=== PATIENT | male | born 1950 | race Caucasian/White ===

== ENCOUNTER 2017-01-28 03:01 | Observation (INO) ==
[2017-01-28 03:50] LABS: Basophils % 0.5 %; Eosinophils # 0.2 K/mcL (0.0-0.6); Eosinophils % 3.7 %; Hematocrit 43.7 % (37.5-50.1); Immature Granulocytes % 0.2 % (0-4); Lymphocytes % 32.5 %; Mean Corpuscular HGB Conc 34.3 g/dL (31.6-35.5); Mean Corpuscular Hemoglobin 30.2 pg (28.0-33.3); Mean Corpuscular Volume 88.1 fL (83.0-100.0); Mean Platelet Volume 12.1 fL (9.4-12.4); Monocytes # 0.5 K/mcL (0.0-1.3); Monocytes % 8.5 %; Neutrophils # 3.4 K/mcL (1.6-8.9); Platelet Count 103 K/mcL (140-400); Red Blood Count 4.96 M/mcL (4.19-5.50); Red Cell Distribution Width 12.4 % (11.5-14.5); Segmented Neutrophils % 54.6 %
[2017-01-28 03:55] LABS: Bilirubin,Urine Negative (Negative); Blood,Urine Negative (Negative); Clarity,Urine Cloudy (Clear); Color,Urine Yellow (Yellow); Glucose,Urine (UA) Normal (Normal); Ketones,Urine Trace mg/dL (Negative); Leukocyte Esterase,Urine Negative (Negative); Nitrite,Urine Negative (Negative); PH,Urine 5.5 pH Units (5.0-8.0); Protein,Urine Negative (Neg-Trace); Specific Gravity,Urine 1.022 (1.010-1.025); Urobilinogen,Urine Normal (Normal)
[2017-01-28 03:57] LABS: RBC,Urine 0-3 per hpf (0-3); Squamous Epithelial Cell,Urine Many per lpf (None-Few); WBC,Urine 0-3 per hpf (0-3)
[2017-01-28 04:04] LABS: Alanine Aminotransferase 15 Units/L (0-55); Albumin 3.4 g/dL (3.5-5.0); Albumin/Globulin Ratio 0.9 (1.1-2.2); Alkaline Phosphatase 62 Units/L (38-126); Aspartate Amino Transferase 21 Units/L (5-34); BUN/Creatinine Ratio 14 (6-26); Bilirubin,Direct 0.5 mg/dL (0.0-0.5); Bilirubin,Indirect 0.9 mg/dL (0.0-1.2); Bilirubin,Total 1.4 mg/dL (0.2-1.2); Blood Urea Nitrogen 19 mg/dL (8-26); Calcium 10.1 mg/dL (8.6-10.8); Carbon Dioxide 29 mEq/L (19-29); Chloride 101 mEq/L (98-109); Globulin 3.8 g/dL (2.4-3.5); Glucose 135 mg/dL (70-99); Lipase 19 Units/L (8-78); Osmolality,Calculated 294 (280-300); Potassium 3.6 mEq/L (3.5-4.5); Sodium 140 mEq/L (136-145); Total Protein 7.2 g/dL (6.0-8.3); eGFR For African Americans > 60 (> 60); eGFR For Non-African Americans 54 (> 60)
[2017-01-28 04:16] LABS: Bacteria,Urine Few per hpf (None-Few); Calcium Oxalate Crystals,Urine Present; Hyaline Casts,Urine Few per lpf (None-Few); Mucus,Urine Few (Few)
--- NOTE | 2017-01-28 07:23 | Emergency Department Note ---
Disposition Clinical Impression: Abdominal pain Qualifiers: Abdominal location: unspecified location Qualified Code(s): R10.9 - Unspecified abdominal pain Disposition: Admitted As Inpatient Condition: Good Referrals: NONE,PCP [Primary Care Provider] - Forms: Work/School Release, ED Satisfaction Letter Time of Disposition: 09:50 Abdominal Pain HPI - General Chief Complaint: ED Abdominal Pain Stated Complaint: abd pain Time Seen by Provider: 01/28/17 07:19 Source: patient Mode of arrival: ambulatory Limitations: no limitations Nursing Notes Reviewed: Yes Vital Signs Reviewed: Yes - History of Present Illness HPI Narrative: 66-year-old has had burning pain across his upper abdomen for the last several weeks. Saw his family doctor she felt it was a hernia because when he sits up he has some bulging in the epigastrium. He states this burning comes on after he eats. Currently has no symptoms. Pt Subjective Complaint: abdominal pain Onset (ago): week(s) Consistency: intermittent Location: LUQ, RUQ, epigastric Pain Scale: 4 Quality: burning Radiation: none Migration to: no migration Improves with: nothing Worsens with: eating Associated symptoms: Reports: nausea Treatments prior to arrival: none - Related Data Home Medications Medication Instructions Recorded Confirmed Losartan/HCTZ [Hyzaar 50-12.5 1 each PO DAILY 11/19/15 11/17/16 Tablet] Terazosin [Hytrin] 5 mg PO HS 11/19/15 11/17/16 GlipiZIDE [Glipizide Xl] 5 mg PO DAILY 11/17/16 11/17/16 Metoprolol [Lopressor] 50 mg PO BID 11/17/16 11/17/16 Allergies Allergy/AdvReac Type Severity Reaction Status Date / Time lisinopril AdvReac Cough Verified 11/17/16 08:52 All systems ED: reviewed and negative except as stated. Constitutional: Denies: fever, chills, weakness, weight change Eyes: Denies: eye pain, eye discharge, vision change ENT ED: Denies: ear pain, throat pain, dental pain, hearing loss, epistaxis, congestion, dysphagia Cardiovascular: Denies: chest pain, palpitations, dyspnea on exertion, edema, syncope Respiratory: Denies: cough, dyspnea, wheezes, hemoptysis, stridor Gastrointestinal: Reports: abdominal pain. Denies: nausea, vomiting, diarrhea, constipation, hematemesis, melena, hematochezia Genitourinary: Denies: urgency, dysuria, frequency, hematuria Musculoskeletal: Denies: back pain, neck pain, arthralgia, myalgia Integumentary: Denies: rash, abrasion, lesions Neurological: Denies: headache, weakness, numbness, paresthesias, confusion, abnormal gait, vertigo Psychiatric: Denies: anxiety, depression, suicidal thoughts, homicidal thoughts , auditory hallucinations, visual hallucinations Endocrine: Denies: fatigue Hematological/Lymphatic: Denies: easy bleeding, easy bruising Allergic/Immunologic: Denies: facial swelling, urticaria Abdominal Pain PMH - Past Medical History Medical history: Reports: diabetes, hypertension Male Surgical History: Reports: no surgical history Psychiatric history: Reports: no psych history - Social History Smoking status: Never smoker Alcohol use: Reports: none Drug use: Reports: none Physical Exam - General Limitations: no limitations General appearance: alert, in no apparent distress - Head Head exam: atraumatic, normocephalic, normal inspection - Eye Eye exam: Present: normal appearance, PERRL, EOMI - ENT ENT exam: normal exam, normal oropharynx, mucous membranes moist - Neck Neck exam: Present: normal inspection, full ROM, trachea midline - Chest Chest inspection: Present: normal inspection, symmetric chest wall rise - Respiratory Respiratory exam: Present: normal lung sounds bilaterally - Cardiovascular Cardiovascular exam: Present: regular rate - Abdominal Exam Abdominal exam: Present: soft, Non-Tender. Absent: tenderness, distention, guarding, rebound, rigidity - Extremities Exam Extremities exam: Present: normal inspection, full ROM. Absent: tenderness, pedal edema - Expanded Lower Extremity Exam Neurovascular/Tendon exam: Absent: motor deficit, sensory deficit, tendon deficit Gait: observed and normal - Back Exam Back exam: Present: normal inspection, full ROM. Absent: tenderness - Neurological Exam Neurological exam: Present: alert, oriented X3 - Psychiatric Psychiatric exam: Present: normal affect, normal mood - Skin Skin exam: Present: warm, dry, intact, normal color Course - Consultations Consultation #1: Discussed with who indicates the patient should be admitted to hospitalist in this further evaluated. Time: 09:29 Consultation #2: Discussed with Dr. Iniguez, will consult. Time: 09:48 Consultation #3: Discussed with Gildardo Orozco, admit. Time: 09:49 Vital Signs Temperature 97.8 F 01/28/17 03:02 Pulse Rate 68 01/28/17 03:02 Respiratory Rate 18 01/28/17 03:02 Blood Pressure 138/89 01/28/17 03:02 O2 Sat by Pulse Oximetry 97 01/28/17 03:02 Temperature 97.8 F 01/28/17 03:02 Pulse Rate 68 01/28/17 07:58 Respiratory Rate 16 01/28/17 07:58 Blood Pressure 138/98 01/28/17 07:58 O2 Sat by Pulse Oximetry 97 01/28/17 07:58 Oxygen Delivery Oxygen Delivery Room Air Abdominal Pain - Lab Data Lab results reviewed: Yes I reviewed the patient's lab results. Result diagrams: 01/28/17 03:42 01/28/17 03:42 Lab Results 01/28/17 01/28/17 01/28/17 Range/Units 03:42 03:42 03:47 WBC 6.2 (4.3-11.1) K/mcL RBC 4.96 (4.19-5.50) M/mcL Hgb 15.0 (12.9-16.9) g/dL Hct 43.7 (37.5-50.1) % MCV 88.1 (83.0-100.0) fL MCH 30.2 (28.0-33.3) pg MCHC 34.3 (31.6-35.5) g/dL RDW 12.4 (11.5-14.5) % Plt Count 103 L (140-400) K/mcL MPV 12.1 (9.4-12.4) fL Immature Gran % 0.2 (0-4) % Seg Neutrophils % 54.6 % Lymphocytes % 32.5 % Monocytes % 8.5 % Eosinophils % 3.7 % Basophils % 0.5 % Neutrophils # 3.4 (1.6-8.9) K/mcL Lymphocytes # 2.0 (0.6-4.6) K/mcL Monocytes # 0.5 (0.0-1.3) K/mcL Eosinophils # 0.2 (0.0-0.6) K/mcL Basophils # 0.0 (0.0-0.2) K/mcL Sodium 140 (136-145) mEq/L Potassium 3.6 (3.5-4.5) mEq/L Chloride 101 (98-109) mEq/L Carbon Dioxide 29 (19-29) mEq/L BUN 19 (8-26) mg/dL Creatinine 1.32 H (0.72-1.25) mg/dL Est GFR ( Amer) > 60 (> 60) Est GFR (Non-Af Amer) 54 L (> 60) BUN/Creatinine Ratio 14 (6-26) Glucose 135 H (70-99) mg/dL Calculated Osmolality 294 (280-300) Calcium 10.1 (8.6-10.8) mg/dL Total Bilirubin 1.4 H (0.2-1.2) mg/dL Direct Bilirubin 0.5 (0.0-0.5) mg/dL Indirect Bilirubin 0.9 (0.0-1.2) mg/dL AST 21 (5-34) Units/L ALT 15 (0-55) Units/L Alkaline Phosphatase 62 (38-126) Units/L Troponin I (0-0.03) ng/mL Serum Total Protein 7.2 (6.0-8.3) g/dL Albumin 3.4 L (3.5-5.0) g/dL Globulin 3.8 H (2.4-3.5) g/dL Albumin/Globulin Ratio 0.9 L (1.1-2.2) Amylase (25-125) Units/L Lipase 19 (8-78) Units/L Urine Color Yellow (Yellow) Urine Clarity Cloudy A (Clear) Urine pH 5.5 (5.0-8.0) pH Units Ur Specific [place] 1.022 (1.010-1.025) Urine Protein Negative (Neg-Trace) mg/dL Urine Glucose (UA) Normal (Normal) mg/dL Urine Ketones Trace H (Negative) mg/dL Urine Blood Negative (Negative) Urine Nitrite Negative (Negative) Urine Bilirubin Negative (Negative) Urine Urobilinogen Normal (Normal) mg/dL Ur Leukocyte Esterase Negative (Negative) Urine Microscopic RBC 0-3 (0-3) per hpf Urine Microscopic WBC 0-3 (0-3) per hpf Ur Squamous Epith Cells Many H (None-Few) per lpf Calcium Oxalate Crystal Present Urine Bacteria Few (None-Few) per hpf Hyaline Casts Few (None-Few) per lpf Urine Mucus Few (Few) Ur Culture Indicated? NO (NO) 01/28/17 01/28/17 Range/Units 07:32 07:32 WBC (4.3-11.1) K/mcL RBC (4.19-5.50) M/mcL Hgb (12.9-16.9) g/dL Hct (37.5-50.1) % MCV (83.0-100.0) fL MCH (28.0-33.3) pg MCHC (31.6-35.5) g/dL RDW (11.5-14.5) % Plt Count (140-400) K/mcL MPV (9.4-12.4) fL Immature Gran % (0-4) % Seg Neutrophils % % Lymphocytes % % Monocytes % % Eosinophils % % Basophils % % Neutrophils # (1.6-8.9) K/mcL Lymphocytes # (0.6-4.6) K/mcL Monocytes # (0.0-1.3) K/mcL Eosinophils # (0.0-0.6) K/mcL Basophils # (0.0-0.2) K/mcL Sodium (136-145) mEq/L Potassium (3.5-4.5) mEq/L Chloride (98-109) mEq/L Carbon Dioxide (19-29) mEq/L BUN (8-26) mg/dL Creatinine (0.72-1.25) mg/dL Est GFR ( Amer) (> 60) Est GFR (Non-Af Amer) (> 60) BUN/Creatinine Ratio (6-26) Glucose (70-99) mg/dL Calculated Osmolality (280-300) Calcium (8.6-10.8) mg/dL Total Bilirubin (0.2-1.2) mg/dL Direct Bilirubin (0.0-0.5) mg/dL Indirect Bilirubin (0.0-1.2) mg/dL AST (5-34) Units/L ALT (0-55) Units/L Alkaline Phosphatase (38-126) Units/L Troponin I 0.00 (0-0.03) ng/mL Serum Total Protein (6.0-8.3) g/dL Albumin (3.5-5.0) g/dL Globulin (2.4-3.5) g/dL Albumin/Globulin Ratio (1.1-2.2) Amylase 36 (25-125) Units/L Lipase (8-78) Units/L Urine Color (Yellow) Urine Clarity (Clear) Urine pH (5.0-8.0) pH Units Ur Specific [place] (1.010-1.025) Urine Protein (Neg-Trace) mg/dL Urine Glucose (UA) (Normal) mg/dL Urine Ketones (Negative) mg/dL Urine Blood (Negative) Urine Nitrite (Negative) Urine Bilirubin (Negative) Urine Urobilinogen (Normal) mg/dL Ur Leukocyte Esterase (Negative) Urine Microscopic RBC (0-3) per hpf Urine Microscopic WBC (0-3) per hpf Ur Squamous Epith Cells (None-Few) per lpf Calcium Oxalate Crystal Urine Bacteria (None-Few) per hpf Hyaline Casts (None-Few) per lpf Urine Mucus (Few) Ur Culture Indicated? (NO) - Radiology Data Radiology results reviewed: Yes I reviewed the patient's radiology results. Abdomen/Pelvis CT 01/28/17 07:19 IMPRESSION: 1. Mild inflammation within the central mesenteric root. The differential diagnosis includes mesenteric edema, inflammation from enteritis versus less likely mesenteric adenitis or pancreatitis. D/ / 01/28/2017 08:04:46 Samuel Henriquez MD / gissel Interpreting Provider: Samuel Henriquez MD - EKG Data EKG attestation: Yes I reviewed and interpreted this EKG. EKG shows normal: sinus rhythm Rate: normal Rhythm: NSR T wave inversions noted in: II, III, aVF When compared to previous EKG there are: no significant changes (06/03/1998) Interpretation: no acute changes
[2017-01-28] MEDS ORDERED: Pantoprazole 40 MG VIAL IVP ONE (09:47)
[2017-01-28] MEDS ORDERED: Piperacillin/Tazobactam 3.375 GM in D5% in Water (Mini-Bag+) 100 ML IVPB ONE (09:47)
--- NOTE | 2017-01-28 13:00 | Internal Med History&Physical ---
<Ella Graham - Last Filed: 01/28/17 13:42> Date of Encounter: 01/28/17 Time of Encounter: 12:30 Assessment and Plan (1) Abdominal pain Current visit: Yes Status: Acute Pt reports 1 1/2 week history of upper abdominal burning that is constant, but fluctuates in intensity. Rates 8/10 without radiation. He denies hematemesis, hematochezia, melena, n/v/d. He reports increased belching. Recently started ASA and Metformin and has stopped taking Metformin to see if pain stopped. He reports similar pain with ASA in the past. Epigastric area tender to palpation. ED physician has consulted surgery and GI. CT shows enteritis vx mesenteric adenitis vs pancreatitis. Abdomen/Pelvis CT 01/28/17 07:19 IMPRESSION: 1. Mild inflammation within the central mesenteric root. The differential diagnosis includes mesenteric edema, inflammation from enteritis versus less likely mesenteric adenitis or pancreatitis. D/ / 01/28/2017 08:04:46 Samuel Henriquez MD / gissel Interpreting Provider: Samuel Henriquez MD Stop ASA Protonix 40mg IV GI consult for possible EGD Surgical consult Continue IV antibiotics. Qualifiers: Abdominal location: upper abdomen, unspecified Qualified Code(s): R10.10 - Upper abdominal pain, unspecified (2) HTN (hypertension) Current visit: Yes Status: Acute Chronic. Continue home medications. Qualifiers: Hypertension type: essential hypertension Qualified Code(s): I10 - Essential (primary) hypertension (3) Palpitations Current visit: Yes Status: Acute History. Pt states that he was placed on BB by PCP for palpitations years ago. Denies recently. Continue home medications. (4) Irritable bowel Current visit: Yes Status: Acute Prior history. Pt states that he used to take Reglan. Denies recent difficulties. Qualifiers: Irritable bowel syndrome type: with both diarrhea and constipation Qualified Code(s): K58.2 - Mixed irritable bowel syndrome (5) Type 2 diabetes mellitus Current visit: No Status: Acute Recent diagnosis in November. Pt has been taking Metformin until a few days ago when he stopped to see if it was the cause of his abdominal pain. Accuchecks ac/hs Diabetic diet Sliding scale insulin. Qualifiers: Diabetes mellitus complication status: without complication Diabetes mellitus fdc insulin use: without intermodal truck driver use Qualified Code(s): E11.9 - Type 2 diabetes mellitus without complications (6) MGUS (monoclonal gammopathy of unknown significance) Current visit: No Status: Chronic Stable. Pt follows with [facility]. (7) DVT prophylaxis Current visit: Yes Status: Acute Heparin SQ. Pt is ambulatory and observation status. Internal Medicine - H&P: HPI Admitted From: Home Plans for Post Hospital Care: Home History of present illness: Mr. Stein is a 66 year old male with a past medical history of DMII, HTN, palpitations controlled with BB, IBS, and MGUS. He presented to the ED during the night with c/o 1 1/2 week history of upper abdominal pain. He was seen at PCP and was diagnosed with a hernia and referred to surgery, Dr. Zuniga. He reports pain 8/10 that is constant, but the intensity fluctuates. Last colonoscopy was 10 years ago and he is due for another, but has not scheduled it yet. The pain may be made worse by eating, as his abdomen becomes more bloated and distended with eating. The pain is relieved by nothing. HE denies radiation of the pain, n/v/d. Pt states that he was recently started on ASA and Metformin 500mg po daily on December 05. He reports prior GI distress with ASA and had to stop taking it. States that the pain is similar. Pt has had an intentional 20lb weight loss in relation to his new diagnosis of DM and states that he has some anorexia due to pain. Past Med Surg Social Fam HX - Past Medical History Medical history: diabetes, hypertension Psychiatric history: no psych history - Past Surgical History Surgical History: no surgical history - Social History Smoking Status: Never smoker Smokeless Tobacco Status: No Alcohol use: none Drug use: none - Family History Mother Hx Family Endocrine Disorder: Yes (DM) Grandmother Hx Family Endocrine Disorder: Yes (DM) Father Hx Family Cardiac Disorders: Yes (A-Fib) Internal Medicine - H&P: Meds Terazosin [Hytrin] 5 mg PO HS 11/19/15 [History] GlipiZIDE [Glipizide Xl] 2.5 mg PO DAILY 11/17/16 [History] Metoprolol [Lopressor] 50 mg PO BID 11/17/16 [History] Aspirin [Lo-Dose Aspirin EC] 81 mg PO DAILY 01/28/17 [History] Losartan/Hydrochlorothiazide [Hyzaar 100-12.5 Tablet] 1 tab PO QAM 01/28/17 [ History] metFORMIN [Glucophage] 500 mg PO HS 01/28/17 [History] Allergies lisinopril Adverse Reaction (Verified 11/17/16 08:52) Cough All Systems PM: A 10-system review of systems was performed and is negative for pertinent findings except as documented above in the HPI. - Constitutional Constitutional: anorexia, no chills, no fatigue, no falls, no lethargy, no weakness, no weight gain - EENT Eyes: no change in vision, no other visual disturbances - Cardiovascular Cardiovascular ROS IM: no chest pain, no diaphoresis, no dyspnea, no edema, no irregular heart rhythm, no lightheadedness, no palpitations - Respiratory Respiratory: no cough, no dyspnea on exertion, no stridor, no chest congestion - Gastrointestinal Gastrointestinal: belching, bloating, dyspepsia, no change in bowel habits, no coffee ground emesis, no constipation, no diarrhea, no melena, no nausea, no vomiting - Genitourinary Genitourinary ROS male: no difficulty urinating, no hematuria, no urinary frequency, no urinary urgency - Musculoskeletal Musculoskeletal ROS IM: no back pain, no myalgias, no numbness, no tingling - Neurological Neurological ROS: no confusion, no dizziness, no memory loss, no weakness - Endocrine Endocrine IM: no polydipsia, no polyphagia, no polyuria - Constitutional Vitals: Temp Pulse Resp BP Pulse Ox 98.0 F 55 18 134/89 98 01/28/17 11:32 01/28/17 11:32 01/28/17 11:32 01/28/17 11:32 01/28/17 11:32 General appearance: Present: cooperative, A&O X 3, pleasant, no acute distress, answers questions appropriately - Head Head exam: Present: normal inspection - Eye Eye exam: Present: normal appearance, conjuntiva pink - ENT ENT exam: Present: mucous membranes moist, normal exam, normal external ear exam - Neck Neck exam general surgery: Absent: lymphadenopathy, tenderness - Respiratory Respiratory exam: Present: CTAB. Absent: rales, rhonchi, stridor, wheezes - Cardiovascular Cardiovascular exam: Present: RRR, +S1. Absent: diastolic murmur, systolic murmur - GI/Abdominal GI/Abdominal exam: Present: distended, firm, normal bowel sounds. Absent: hepatomegaly, tenderness - Extremities Exam Extremities exam: Present: normal inspection, warm, radial pulses palpable and symetrical. Absent: pedal edema, tenderness - Neurological Exam Neurological exam: Present: alert, oriented X3, strengths equal and symetr throughout. Absent: facial droop, speech deficit - Skin Skin exam: Present: dry, intact, warm. Absent: rash, urticaria Internal Med - H&P Results - Labs CBC & Chem 7: 01/28/17 03:42 01/28/17 03:42 <Edison Baker - Last Filed: 01/28/17 18:51> Date of Encounter: 01/28/17 Internal Medicine - H&P: HPI History of present illness: Mr. Stein is a 66 year old male All Systems PM: A 10-system review of systems was performed and is negative for pertinent findings except as documented above in the HPI. - Constitutional Vitals: Temp Pulse Resp BP Pulse Ox 97.7 F 64 16 124/81 94 01/28/17 15:06 01/28/17 15:06 01/28/17 15:06 01/28/17 15:06 01/28/17 15:06 Internal Med - H&P Results - Labs CBC & Chem 7: 01/28/17 03:42 01/28/17 03:42 - Attending Attestation I have personally performed a face to face evaluation on this patient. I have reviewed and agree with the care plan. History and Exam by me shows: 66 y/o male with history of DM presents with abdominal pain. Pain is located in epigastric region and occurs after eating. No fever or chills. Started metformin and ASA in last few months. Exam Alert. Pleasant Mucus membranes moist Heart reg No wheeze Abd soft - mild discomfort epigastric area without peritoneal signs. I/p 1. Abd pain NPO after midnight GI consult 2. DM Further diagnoses and plan as above.
[2017-01-28] MEDS ORDERED: Ondansetron ODT 4 MG TAB.RAPDIS SL PRN (13:19)
[2017-01-28] MEDS ORDERED: Mag Hydrox/Al Hydrox/Simeth 30 ML UDC PO PRN (13:19)
[2017-01-28] MEDS ORDERED: Naloxone 0.4 MG/ML INJ IVP PRN (13:19)
[2017-01-28] MEDS ORDERED: MOM Conc 10 ML UD.LIQ PO PRN (13:19)
[2017-01-28] MEDS ORDERED: *HR* HYDROcodone/Acet 5/325 mg TABLET PO PRN (13:19)
[2017-01-28] MEDS ORDERED: Acetaminophen 325 MG TABLET PO PRN (13:19)
[2017-01-28] MEDS ORDERED: *HR* Dextrose 50 % in Water (Syg) 50 ML SYRINGE IVP PRN (13:21)
[2017-01-28] MEDS ORDERED: Dextrose Gel 15 GM PO PRN ×2 (13:21)
[2017-01-28] MEDS ORDERED: D5% in Water 1,000 ML IVC PRN (13:21)
[2017-01-28] MEDS: Insulin LISPRO 300 UNITS/3 ML VIAL SQ SCH ×2 (14:27→18:03)
[2017-01-28] MEDS ORDERED: Insulin LISPRO 300 UNITS/3 ML VIAL SQ SCH (21:00)
--- NOTE | 2017-01-28 22:35 | Internal Medicine Consult Note ---
Date of Encounter: 01/28/17 Time of Encounter: 22:33 - Assessment and Plan (1) Abdominal pain Current Visit: Yes Status: Acute Assessment and plan: CAT scan shows mesenteric adenitis, this is somewhat consistent with his story as well. Less likely etiologies to include upper abdominal strain, or ulcer disease. I think biliary disease is less likely. To be thorough, recommended upper endoscopy which we'll do in the morning. Risks and benefits have been discussed, he has signed consent. Qualifiers: Abdominal location: upper abdomen, unspecified Qualified Code(s): R10.10 - Upper abdominal pain, unspecified (2) HTN (hypertension) Current Visit: Yes Status: Acute Qualifiers: Hypertension type: essential hypertension Qualified Code(s): I10 - Essential (primary) hypertension Internal Medicine - CN: HPI - Data of Consult Consult date: 01/28/17 Requesting Physician: Ella Graham CNP - Consult Narrative Reason for consult: Abdominal pain History of present illness: Mr. Stein is a 66 year old male presented to the ER today, with upper abdominal discomfort. This is been ongoing for at least the last 6 days, somewhat persistent and goal, at times crampy. He's had no nausea no vomiting no change in his bowels. No previous bouts like this. He has been losing some weight but has been trying. He saw his primary care provider, and was told to come to the ER his pain worsened which it did. He also admits in the last 2 weeks, with a low back discomfort and since then he notices that when he sits up straight he does some upper abdominal discomfort and stretching sensation. He does not report any nonsteroidal use. No prior EGD. Past Med Surg Social Fam HX - Past Medical History Medical history: diabetes, hypertension Psychiatric history: no psych history - Past Surgical History Surgical History: no surgical history - Social History Smoking Status: Never smoker Smokeless Tobacco Status: No Alcohol use: none Drug use: none - Family History Mother Hx Family Endocrine Disorder: Yes (DM) Grandmother Hx Family Endocrine Disorder: Yes (DM) Father Hx Family Cardiac Disorders: Yes (A-Fib) - Constitutional Constitutional: as per HPI, weight loss, no anorexia, no chills, no weakness - Cardiovascular Cardiovascular ROS IM: no dyspnea, no dyspnea on exertion, no irregular heart rhythm - Respiratory Respiratory: no cough, no dyspnea - Gastrointestinal Gastrointestinal: abdominal pain, bloating, cramping, no change in bowel habits , no diarrhea - Genitourinary Genitourinary ROS male: difficulty urinating, urinary frequency, no urinary hesitancy - Neurological Neurological ROS: no lack of coordination, no loss of vision, no weakness Internal Medicine - CN: Meds Terazosin [Hytrin] 5 mg PO HS 11/19/15 [History] GlipiZIDE [Glipizide Xl] 2.5 mg PO DAILY 11/17/16 [History] Metoprolol [Lopressor] 50 mg PO BID 11/17/16 [History] Aspirin [Lo-Dose Aspirin EC] 81 mg PO DAILY 01/28/17 [History] Losartan/Hydrochlorothiazide [Hyzaar 100-12.5 Tablet] 1 tab PO QAM 01/28/17 [ History] metFORMIN [Glucophage] 500 mg PO HS 01/28/17 [History] Allergies lisinopril Adverse Reaction (Verified 11/17/16 08:52) Cough Internal Medicine - CN: Exam - Constitutional Vitals: Temp Pulse Resp BP Pulse Ox 98.2 F 63 12 159/108 94 01/28/17 19:22 01/28/17 19:22 01/28/17 19:22 01/28/17 19:22 01/28/17 19:22 General appearance IM: Present: A&O X 3, pleasant, no acute distress, answers questions appropriately - Head Head exam: Present: atraumatic, normocephalic - ENT ENT exam: Present: mucous membranes moist - Neck Neck exam general surgery: Present: full ROM, supple, trachea midline - Respiratory Respiratory exam: Present: CTAB - Cardiovascular Cardiovascular exam IM: Present: RRR. Absent: JVD, tachycardia - GI/Abdominal GI/Abdominal exam IM: Present: normal bowel sounds, soft, tenderness. Absent: mass, rebound, rigid Additional comments: Mild upper abdominal tenderness, with palpation - Rectal Rectal exam: Present: deferred Internal Medicine - CN: Reslt - Labs CBC & Chem 7: 01/28/17 03:42 01/28/17 03:42 Consult Discharge Plan - Plan Referrals: NONE,PCP [Primary Care Provider] -
[2017-01-29 05:10] LABS: Hematocrit 40.7 % (37.5-50.1); Hemoglobin 13.6 g/dL (12.9-16.9); Immature Granulocytes % 0.2 % (0-4); Mean Corpuscular HGB Conc 33.4 g/dL (31.6-35.5); Mean Corpuscular Volume 89.8 fL (83.0-100.0); Mean Platelet Volume 12.4 fL (9.4-12.4); Platelet Count 100 K/mcL (140-400); Red Blood Count 4.53 M/mcL (4.19-5.50); Red Cell Distribution Width 12.3 % (11.5-14.5); Segmented Neutrophils % 50.8 %
[2017-01-29 05:11] LABS: Basophils % 0.7 %; Eosinophils # 0.2 K/mcL (0.0-0.6); Eosinophils % 3.7 %; Lymphocytes # 1.9 K/mcL (0.6-4.6); Lymphocytes % 35.6 %; Monocytes # 0.5 K/mcL (0.0-1.3); Neutrophils # 2.8 K/mcL (1.6-8.9)
[2017-01-29 05:14] LABS: BUN/Creatinine Ratio 13 (6-26); Blood Urea Nitrogen 17 mg/dL (8-26); Calcium 9.5 mg/dL (8.6-10.8); Carbon Dioxide 32 mEq/L (19-29); Chloride 103 mEq/L (98-109); Glucose 117 mg/dL (70-99); Osmolality,Calculated 301 (280-300); Potassium 3.7 mEq/L (3.5-4.5); Sodium 144 mEq/L (136-145); eGFR For African Americans > 60 (> 60); eGFR For Non-African Americans 54 (> 60)
[2017-01-29] MEDS ORDERED: *HR* Enoxaparin 40 MG/0.4 ML SYRINGE SQ SCH (07:00)
[2017-01-29] MEDS ORDERED: *HR* Midazolam HCl 5 MG/5 ML VIAL IVP ONE (07:14)
[2017-01-29] MEDS ORDERED: *HR* FentaNYL (PF) 100 MCG/2 ML VIAL ONE (07:15)
[2017-01-29] MEDS ORDERED: *HR* Midazolam HCl 5 MG/5 ML VIAL IVP PRN (07:29)
[2017-01-29] MEDS ORDERED: Simethicone 40 MG/0.6 ML MLS IR ONE (07:29)
[2017-01-29] MEDS ORDERED: *HR* FentaNYL (PF) 100 MCG/2 ML VIAL IVP PRN (07:29)
[2017-01-29] MEDS ORDERED: Tetracaine/Benzocaine/Butamben 200MG/SPRAY (100SPY/BOT) MM ONE (07:29)
[2017-01-29] MEDS ORDERED: 0.9 % Sodium Chloride 1,000 ML IVC SCH (07:30)
--- NOTE | 2017-01-29 07:30 | Pre-Sedation Evaluation ---
Pre-sedation evaluation - Pre-sedation checklist Date of procedure: 01/29/17 Procedure: egd Recent Vitals: Last Vital Signs Temp 97.4 F L 01/29/17 07:25 Pulse 70 01/29/17 07:25 Resp 20 01/29/17 07:25 BP 156/100 01/29/17 07:25 Pulse Ox 98 01/29/17 03:32 H&P (including ROS) documented in medical record: Yes Previous reaction to sedatives/anesthetics: No Dietary Status: NPO after Midnight Airway Assessment: Patient can open mouth completely, TMJ function normal Dentition: full dentition Possible difficult airway: No ASA Classification *see protocol: CLASS II-Mild systemic disease
--- NOTE | 2017-01-29 07:52 | Event Note ---
Date of Encounter: 01/29/17 Time of Encounter: 07:49 EGD Findings Normal Esoph. Normal Stomach (Biopsy for H. Pylori) Normal Duodenum (Biopsy for [place] Red Stain) He does have Thrombocytopenia and some Azotemia.. both of these appear new. Have ordered PT, PTT, manual platlet count. Doubt this is Vasculitis, also consider Amyloid. He can be discharged to home I suspect. If this is truly Mesenteric Adenitis, it should resolve. He should have CT in two weeks for resolution.
[2017-01-29 08:16] LABS: INR 1.2; Prothrombin Time 12.8 Seconds (9.4-12.1)
[2017-01-29 08:18] LABS: Activated Partial Thrombo Time 28.5 Seconds (26.0-36.0)
[2017-01-29] MEDS ORDERED: Losartan/HCTZ 50-12.5 TABLET PO SCH (09:00)
[2017-01-29] MEDS ORDERED: Pantoprazole 40 MG VIAL IVP SCH (09:00)
[2017-01-29] MEDS ORDERED: Tetracaine/Benzocaine/Butamben 200MG/SPRAY (100SPY/BOT) ONE (09:21)
[2017-01-29] MEDS: Insulin LISPRO 300 UNITS/3 ML VIAL SQ SCH ×2 (09:42→12:13)
[2017-01-29 14:15] VITALS: BP 113/79
--- NOTE | 2017-01-29 15:18 | Electrocardiograph Report ---
[address] [address] Test Date: 2017-01-28 Pat Name: Say Stein Department: 104 Room: 3B Gender: M [employer] Pinner: LAITH : 1950 Requested By: Dion Díaz Order Number: [id number] Reading MD: Anel Veliz Measurements Intervals [place] Rate: 57 P: 48 MN: 207 QRS: -27 QRSD: 88 T: 265 QT: 415 QTc: 409 Interpretive Statements SINUS BRADYCARDIA BORDERLINE LEFT AXIS DEVIATION VOLTAGE CRITERIA FOR LVH MODERATE T-WAVE ABNORMALITY, CONSIDER LATERAL ISCHEMIA MODERATE T-WAVE ABNORMALITY, CONSIDER INFERIOR ISCHEMIA Electronically Signed On 01-28-2017 22:41:26 EDT by Anel Veliz
--- NOTE | 2017-01-29 16:36 | Discharge Summary ---
Date of Encounter: 01/29/17 Time of Encounter: 14:20 - Discharge Diagnosis (1) Abdominal pain Priority: Primary Status: Acute Comments: Pt denies abd pain today. Abd is soft and non-tender, rounded, bs present. He denies n/v/d. EGD done today by Dr. Merrill, stomach, esophagus, and duodenum. Biopsies taken. CT in 2 weeks for reevaluation at primary care. Qualifiers: Abdominal location: upper abdomen, unspecified Qualified Code(s): R10.10 - Upper abdominal pain, unspecified (2) HTN (hypertension) Priority: Secondary Status: Chronic Comments: Chronic. Continue home medications. Qualifiers: Hypertension type: essential hypertension Qualified Code(s): I10 - Essential (primary) hypertension (3) Palpitations Priority: Secondary Status: Acute Comments: Chronic. Pt denies now. Continue metoprolol. (4) Type 2 diabetes mellitus Priority: Secondary Status: Chronic Comments: Recent diagnosis. Continue home medications, accuchecks, and diabetic diet at home. Qualifiers: Diabetes mellitus complication status: without complication Diabetes mellitus alf insulin use: without alf use Qualified Code(s): E11.9 - Type 2 diabetes mellitus without complications (5) MGUS (monoclonal gammopathy of unknown significance) Priority: Secondary Status: Chronic Comments: Stable. Pt follows with [facility]. (6) DVT prophylaxis Priority: Secondary Status: Acute Comments: Heparin SQ (7) Thrombocytopenia Priority: Secondary Status: Acute Comments: Plt count has been trending down since October. Coags ordered by Dr. Merrill. D-dimer elevated. I spoke with Dr Merrill regarding rationale, states he was looking for TTP or DIC, as long as coags were WNL, pt is ok to go home. We have scheduled a follow up appointment with heme/onc for Sunday. - Discharge Medications Home Medications: Terazosin [Hytrin] 5 mg PO HS 11/19/15 [History] GlipiZIDE [Glipizide Xl] 2.5 mg PO DAILY 11/17/16 [History] Metoprolol [Lopressor] 50 mg PO BID 11/17/16 [History] Aspirin [Lo-Dose Aspirin EC] 81 mg PO DAILY 01/28/17 [History] Losartan/Hydrochlorothiazide [Hyzaar 100-12.5 Tablet] 1 tab PO QAM 01/28/17 [ History] metFORMIN [Glucophage] 500 mg PO HS 01/28/17 [History] Allergies/Adverse Reactions: Allergies lisinopril Adverse Reaction (Verified 11/17/16 08:52) Cough Date of admission: 01/28/17 09:59 Primary care physician: PCP NONE Discharging clinician: Ella Graham Anticipated date of discharge: 01/29/17 - Patient Status Disposition: Home, Self-Care Functional capacity at discharge: independent ambulation Overall status at discharge: patient is back to baseline - Discharge Instructions Follow Up With: NONE,PCP [Primary Care Provider] - - Diet and Activity Activity: increase activity as tolerated Diet: advance to your usual diet Hospital course: Mr. Stein is a 66 year old male with a past medical history of DMII, HTN, palpitations controlled with BB, IBS, and MGUS. He presented to the ED during the night with c/o 1 1/2 week history of upper abdominal pain. He was seen at PCP and was diagnosed with a hernia and referred to surgery, Dr. Zuniga. He reports pain 8/10 that is constant, but the intensity fluctuates. Last colonoscopy was 10 years ago and he is due for another, but has not scheduled it yet. The pain may be made worse by eating, as his abdomen becomes more bloated and distended with eating. The pain is relieved by nothing. HE denies radiation of the pain, n/v/d. Pt states that he was recently started on ASA and Metformin 500mg po daily on December 05. He reports prior GI distress with ASA and had to stop taking it. States that the pain is similar. Pt has had an intentional 20lb weight loss in relation to his new diagnosis of DM and states that he has some anorexia due to pain. Epigastric area tender to palpation. CT shows enteritis vx mesenteric adenitis vs pancreatitis. Pt was treated with Protonix 40mg IV and IV antibiotics. Pt states that he is feeling better today and denies abd pain. I have advised him to restart the Metformin and pt states that he will not take ASA anymore due to pain. Pt had EGD today with normal esophagus, duodenum, and stomach. Biopsies were taken and pt will be notified if abnormal results. Pt has thrombocytopenia, plt count has been trending down since October. D-dimer and coags ordered by Dr. Merrill. D-dimer was significantly elevated and in speaking with him, his rationale for the test was to check for DIC or TTP. Coags WNL, per Dr Merrill, ok to discharge pt. He will follow up Sunday with heme/ onc for thrombocytopenia. He is already seen there for MGUS, which was stable in October. Pt has small bump in Sr Cr, 1.33, I have encouraged pt to hydrate and follow up with PCP this week, as well as oncology on Sunday. Pt's physical exam is unremarkable. His vitals are stable. Pt is ready for discharge. - Time Spent with Patient Total time spent providing and/or coordinating discharge services: Less than 30 minutes - Constitutional Vitals: Temp Pulse Resp BP Pulse Ox 98.2 F 59 15 113/79 98 01/29/17 14:13 01/29/17 14:13 01/29/17 14:13 01/29/17 14:13 01/29/17 14:13 General appearance: Present: cooperative, A&O X 3, pleasant, no acute distress, answers questions appropriately - Head Head exam: Present: normal inspection - Eye Eye exam: Present: normal appearance, conjuntiva pink - ENT ENT exam: Present: mucous membranes moist, normal exam, normal external ear exam - Neck Neck exam general surgery: Present: normal inspection. Absent: lymphadenopathy , tenderness - Respiratory Respiratory exam: Present: CTAB. Absent: chest wall tenderness, rales, respiratory distress, rhonchi, stridor, wheezes - Cardiovascular Cardiovascular exam: Present: RRR, +S1, +S2. Absent: clicks, diastolic murmur, gallop, systolic murmur - GI/Abdominal GI/Abdominal exam: Present: distended, normal bowel sounds, soft. Absent: hepatomegaly, tenderness - Extremities Exam Extremities exam: Present: normal capillary refill, normal inspection, warm, radial pulses palpable and symetrical. Absent: mottling, pedal edema, tenderness - Neurological Exam Neurological exam: Present: alert, oriented X3, no focal deficits. Absent: altered, facial droop, speech deficit - Skin Skin exam: Present: dry, intact, warm. Absent: rash, urticaria
== END 2017-01-29 17:27 | disposition home or self-care (01) ==
LOC: 3BNU 03:01 → EMEROO 03:01 → 3BNU 10:45
PROVIDERS: ADMIT Nurse Practitioner Family; ATTEND Registered Nurse
PROC: ENDOEBX (2017-01-29 15:30)